=== PATIENT | male | born 1990 | race Two or more races ===

== ENCOUNTER 2018-10-15 06:38 | Emergency (ER) | payer SELFPAY ==
[~2018-10-15] VITALS: Ht 175.3 cm; Wt 90.7 kg
[2018-10-15 06:40] VITALS: BP 155/91
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
[2018-10-15] MEDS ORDERED: Norco 5mg/325mg tab ORAL ONE (06:45)
[2018-10-15] MEDS ORDERED: IBUPROFEN600 MG ORAL (07:34)
[2018-10-15] MEDS ORDERED: NORCO 5-325 TA1 EACH ORAL (07:34)
[2018-10-15 08:04] VITALS: BP 125/85
--- NOTE | 2018-10-15 11:16 | Diagnostic Imaging Report ---
Indication: Pain status post injury Technique: XRAY Wrist Complete L Comparison: None Findings: Bone mineralization within normal limits. There is an acute, impacted and mildly displaced intra-articular fracture of the distal radius. Additionally there is a acute mildly displaced fracture of the ulnar styloid. There is associated soft tissue swelling. No radiopaque foreign body identified. Impression: Acute fractures of the distal radius and ulnar styloid. This corresponds with the preliminary interpretation of the treating ER physician, as documented in the electronic medical record.
--- NOTE | 2018-10-15 11:17 | Diagnostic Imaging Report ---
Indication: Pain, fracture status post closed reduction and splinting. Technique: XRAY Wrist 2v L Comparison: Exam earlier the same day FINDINGS/IMPRESSION: Splint obscures fine bony and soft tissue detail on frontal view. Acute fractures of the distal radius and ulna are again noted with improved alignment status post closed reduction and splinting. There is overlying soft tissue swelling. No new fracture identified.
== END 2018-10-15 08:08 | disposition home or self-care (01) ==
LOC: EDBD 06:38 → EMR 07:11
DX: S52.572A Other intraarticular fracture of lower end of left radius, initial encounter for closed fracture (principal); S52.612A Displaced fracture of left ulna styloid process, initial encounter for closed fracture; S00.511A Abrasion of lip, initial encounter; V43.62XA Car passenger injured in collision with other type car in traffic accident, initial encounter; Y92.410 Unspecified street and highway as the place of occurrence of the external cause
CPT/HCPCS: 99284